=== PATIENT | male | born 1955 | race Two or more races ===

== ENCOUNTER 2016-08-22 10:47 | Day surgery (SDC) | payer MEDICARE ==
[~2016-08-22] VITALS: Ht 165.1 cm; Wt 87.7 kg
--- NOTE | ~2016-08-22 | OP ---
PATIENT NAME: ISAAC MCADAMS MEDICAL RECORD: [id number] :57 LOCATION:D.OPS ADMISSION DATE: SURGEON: MARIETTA CADET DO DATE OF OPERATION: 08/22/2016 PROCEDURE: Colonoscopy with endoscopic mucosal resection. INDICATIONS FOR PROCEDURE: Personal history of polyps. SCOPE: Olympus video pediatric colonoscope. MEDICATIONS: Propofol 230 mg IV per anesthesia. Withdrawal time 12 minutes. PREPARATION: Poor. ESTIMATED BLOOD LOSS: Minimal. FINDINGS: Informed consent was given. The patient was made comfortable with the above medication. After reaching an adequate level of sedation by slow IV push, the patient was placed on his left side. A digital rectal examination was performed and was normal. The endoscope was then advanced under direct visualization through the anus to the cecum. This was evidenced by the appendiceal orifice and ileocecal valve. The prep was extremely poor on the right side of the colon and fair on the left side. From what could be visualized, there was a single benign-appearing sessile polyp in the transverse colon, which measured approximately 1 cm in size. It was lifted with saline and removed with a hot snare and EMR technique. It was removed in 1 piece and completely retrieved. There was no significant bleeding from removal of this polyp. The scope was slowly withdrawn from this point and the mucosa was examination. Retroflexion was performed in the rectum, and there were small nonbleeding internal hemorrhoids. The scope was then withdrawn from the patient. The patient tolerated the procedure well and there were no complications. IMPRESSION: 1. Inadequate prep. 2. Single, benign appearing, sessile polyp as described above in the transverse colon, removed with EMR technique. 3. Small, nonbleeding internal hemorrhoids. PLAN AND RECOMMENDATIONS: 1. Discharge home when recovery parameters are met. 2. Continue current diet. 3. Continue current medications. 4. Recall colonoscopy within 3 months with an extended prep, so that the mucosa can be visualized better based on this procedure, which was inadequate prep and personal history of colon polyps. TRANSINT:[id number] Voice Confirmation ID: [id number] DOCUMENT ID: [id number] OPERATIVE REPORT [id number] ISAAC MCADAMSMARIETTA OSBORNE DO CC: [id number] DICTATION DATE: 08/22/16 1410 REFERRAL NURSE: 08/23/16 0135 [facility] 08/22/16 [facility] [address] [place] [address]
[2016-08-22 12:23] VITALS: BP 121/66; Ht 165.1 cm; Wt 87.7 kg
[2016-08-22 12:23] LABS: BASOPHILS 0.2 % (0-2); EOSINOPHILS 0.6 % (0-7); HEMATOCRIT 44.4 % (42.0-54.0); HEMOGLOBIN 15.2 g/dL (13.5-17.5); IMMATURE GRANULOCYTES 0.4 % (0-5); LYMPHOCYTES 16.2 % (15-50); MCH 32.2 pg (26.0-34.0); MCHC 34.2 g/dL (31.0-37.0); MCV 94.1 fL (80.0-100.0); MEAN PLATELET VOLUME 9.4 fL (7.4-10.4); MONOCYTES 7.8 % (2-11); NEUTROPHILS 74.8 % (40-80); PLATELET COUNT 143 10x3/uL (130-400); RBC 4.72 10x6/uL (4.20-6.10); RDW 12.5 % (11.5-14.5)
[2016-08-22 12:37] LABS: ANION GAP 13.3 mmol/L (8-16); CALCIUM 8.9 mg/dL (8.5-10.1); CARBON DIOXIDE 23.6 mmol/L (21.0-32.0); CREATININE - SERUM 1.1 mg/dL (0.6-1.3); POTASSIUM - SERUM 3.9 mmol/L (3.5-5.1)
[2016-08-22] MEDS ORDERED: HUMULIN R100 U/ML SC (12:39)
[2016-08-22] MEDS ORDERED: LANTUS INSULIN10 ML SC (12:41)
[2016-08-22] MEDS ORDERED: FISH OIL 1,0001 CA1 PO (12:44)
[2016-08-22] MEDS ORDERED: PREDNISONE5 MG PO (12:44)
[2016-08-22] MEDS ORDERED: TACROLIMUS ANHYD1 MG PO (12:45)
[2016-08-22] MEDS ORDERED: MAG-OX 400 MG400 MG PO (12:45)
[2016-08-22] MEDS ORDERED: CELLCEPT500 MG PO (12:45)
[2016-08-22] MEDS ORDERED: TOPROL XL50 MG PO (12:46)
[2016-08-22] MEDS ORDERED: OMEPRAZOLE20 M1 PO (12:46)
[2016-08-22] MEDS ORDERED: REGLAN5 MG PO (12:47)
[2016-08-22] MEDS ORDERED: ZOCOR20 MG PO (12:47)
--- NOTE | 2016-08-22 15:43 | NUR ---
1520-ESCORTED TO [employer] FOR [facility].
== END 2016-08-22 15:20 | disposition home or self-care (01) ==
LOC: D.OPS 10:47
PROVIDERS: Anesthesiology
DX: D12.3 Benign neoplasm of transverse colon (principal); K64.8 Other hemorrhoids; Z01.812 Encounter for preprocedural laboratory examination

== ENCOUNTER 2016-11-25 07:28 | Day surgery (SDC) | payer MEDICARE ==
[~2016-11-25] VITALS: Ht 165.1 cm; Wt 87.7 kg
[~2016-11-25 07:28] MED LIST: CELLCEPT500 MG PO; FISH OIL 1,0001 CA1 PO; HUMULIN R100 U/ML SC; LANTUS INSULIN10 ML SC; MAG-OX 400 MG400 MG PO; OMEPRAZOLE20 M1 PO; PREDNISONE5 MG PO; REGLAN5 MG PO; TACROLIMUS ANHYD1 MG PO; TOPROL XL50 MG PO; ZOCOR20 MG PO
[2016-11-25 08:19] VITALS: Ht 165.1 cm; Wt 87.7 kg
[2016-11-25 08:48] LABS: BASOPHILS 0.2 % (0-2); HEMATOCRIT 44.3 % (42.0-54.0); IMMATURE GRANULOCYTES 0.2 % (0-5); LYMPHOCYTES 23.1 % (15-50); MCH 32.1 pg (26.0-34.0); MCHC 33.9 g/dL (31.0-37.0); MCV 94.9 fL (80.0-100.0); MEAN PLATELET VOLUME 9.5 fL (7.4-10.4); MONOCYTES 7.2 % (2-11); NEUTROPHILS 68.3 % (40-80); PLATELET COUNT 150 10x3/uL (130-400); RBC 4.67 10x6/uL (4.20-6.10); RDW 12.7 % (11.5-14.5)
[2016-11-25 09:27] LABS: CALC OSMOLALITY 279 mosm/kg (275-300); CALCIUM 8.6 mg/dL (8.5-10.1); CARBON DIOXIDE 26.3 mmol/L (21.0-32.0); CHLORIDE - SERUM 106 mmol/L (98-107); GLUCOSE 148 mg/dL (74-106); POTASSIUM - SERUM 3.8 mmol/L (3.5-5.1); SODIUM 140 mmol/L (136-145); UREA NITROGEN 6 mg/dL (7-18); eGFR NON AFRICAN AMERICAN 81 mL/min (90-120)
--- NOTE | 2016-11-26 07:48 | OP ---
PATIENT NAME: ISAAC MCADAMS MEDICAL RECORD: [id number] :57 LOCATION:D.OPS ADMISSION DATE: SURGEON: MARIETTA CADET DO DATE OF OPERATION: 11/25/2016 PROCEDURE: Colonoscopy with polypectomy. INDICATIONS FOR PROCEDURE: Personal history of polyps with a bad prep on his last colonoscopy on 08/22/2016, SCOPE: Olympus video pediatric colonoscope. MEDICATIONS: Propofol 350 mg IV per anesthesia. WITHDRAWAL TIME: 14 minutes. ESTIMATED BLOOD LOSS: Minimal. COMPLICATIONS: None. FINDINGS: Informed consent was given. The patient was made comfortable with the above medication. After reaching an adequate level of sedation by slow IV push, the patient was placed on his left side. A digital rectal examination was performed and it was normal. The endoscope was then advanced under direct visualization through the rectum to the cecum with visualization of the appendiceal orifice and ileocecal valve. Prep quality was good. The scope was slowly withdrawn and the mucosa was carefully examined. There were 2 polyps visualized on this examination. Both were located in the proximal descending colon. They both measured approximately 3-4 mm in size and were sessile. They were both removed using hot forceps in 1 piece and completely retrieved. There was mild diverticulosis noted in the sigmoid colon. Retroflexion was performed in the rectum with visualization of small nonbleeding internal hemorrhoids. The scope was withdrawn from the patient. The patient tolerated the procedure well and there were no complications. IMPRESSION: 1. Small sessile polyps located in the descending colon as described above. Both removed with hot forceps. 2. Mild diverticulosis. 3. Small nonbleeding internal hemorrhoids. PLAN AND RECOMMENDATIONS: 1. Discharge home when recovery parameters are met. 2. Follow up biopsy specimen results. 3. High fiber diet. 4. Continue current medications. 5. Recall colonoscopy in 3-5 years based on tubular adenomatous polyps totaling 3 between these 2 procedures. If there is a change in pathology, final recall date might change along with that pathology report. At this time, I anticipate 3-5 year recall. TRANSINT:[id number] Voice Confirmation ID: [id number] DOCUMENT ID: [id number] OPERATIVE REPORT [id number] ISAAC MCADAMS MARIETTA CADET DO at 0748 CC: [id number] DICTATION DATE: 11/25/16 1054 ETHYLENE [employer] PANELBOARD OPERATOR: 11/25/16 1226 [facility] 11/25/16 [facility] [address] [place] [address]
== END 2016-11-25 11:30 | disposition home or self-care (01) ==
LOC: D.OPS 07:28
PROVIDERS: Anesthesiology
DX: D12.4 Benign neoplasm of descending colon (principal); K57.30 Diverticulosis of large intestine without perforation or abscess without bleeding; K64.8 Other hemorrhoids; Z01.812 Encounter for preprocedural laboratory examination